=== PATIENT | male | born 1955 | race Caucasian/White ===

== ENCOUNTER 2021-01-28 12:34 | Inpatient (IN) | payer MEDICAID, OTHER ==
[~2021-01-28] VITALS: Ht 157.5 cm; Wt 70.3 kg
[2021-01-28 13:24] LABS: EOSINOPHILS % 0.8 % (0.0-5.0); HEMATOCRIT. 36.7 % (42.0-52.0); HEMOGLOBIN. 12.5 g/dL (14.0-18.0); LYMPHOCYTES % 19.3 % (20.0-50.0); MEAN CORPUSCULAR HEMOGLOBIN 37.2 pg (28.0-32.0); MEAN PLATELET VOLUME 9.8 fl (7.4-10.4); MONOCYTES % 9.4 % (2.0-8.0); NEUTROPHILS % 68.5 % (40.0-76.0); PLATELET 75 x1000/uL (130-400); RED BLOOD CELL COUNT 3.37 mill/uL (4.7-6.1); RED CELL DISTRIBUTION WIDTH 17.2 % (11.6-14.6)
[2021-01-28 13:27] LABS: CHLORIDE 99 mEq/L (98-107)
[2021-01-28] MEDS ORDERED: INSULIN REGULAR (HUMULIN R) 300UNITS/3ML VIAL IV ONE (13:45)
[2021-01-28] MEDS ORDERED: DILTIAZEM HCL 5MG/ML 5ML VIAL IV ONE (13:45)
[2021-01-28] MEDS ORDERED: DEXTROSE 50% WATER 50ML SYRINGE IV ONE (13:45)
[2021-01-28] MEDS ORDERED: ENOXAPARIN 80MG/0.8ML SYR SUBCUT ONE (16:15)
[2021-01-28] MEDS ORDERED: SODIUM POLYSTYRENE SULFONATE 15 G/60 ML BOT PO NR (19:45)
[2021-01-28] MEDS ORDERED: FUROSEMIDE 100MG/10ML VIAL IVP NR (19:45)
[2021-01-28] MEDS: METOPROLOL TARTRATE 50MG TABLET PO SCH (20:36)
[2021-01-28 20:46] LABS: HEPATITIS B SURFACE ANTIGEN NEGATIVE
[2021-01-28 21:47] VITALS: BP 111/75
[2021-01-28 22:00] VITALS: BP 111/75
[2021-01-28] MEDS ORDERED: PRO1 MT (22:39)
[2021-01-28] MEDS ORDERED: FERR325T6 MT (22:43)
[2021-01-28] MEDS ORDERED: FURO40TA5 MT (22:43)
[2021-01-28] MEDS ORDERED: PANT40TA51 MT (22:58)
[2021-01-28] MEDS ORDERED: LISI10TA26 MT (22:58)
[2021-01-28] MEDS ORDERED: CALC667C PO (22:58)
[2021-01-28] MEDS ORDERED: LEVO125T8 MT (22:58)
[2021-01-28] MEDS ORDERED: WARF6TAB48 PO (22:58)
[2021-01-28] MEDS ORDERED: CARV3.1242 MT (22:58)
[2021-01-28] MEDS ORDERED: METO-396 PO (22:58)
[2021-01-28] MEDS ORDERED: AMIO100T4 MT (22:58)
[2021-01-28] MEDS ORDERED: ATOR-2 MT (22:58)
[2021-01-28] MEDS ORDERED: ONDANSETRON HCL 4MG/2ML INJ IV PRN (23:30)
[2021-01-29] VITALS (12 sets, daily range): BP systolic 93–130; BP diastolic 43–86
[2021-01-29] MEDS ORDERED: INFLUENZA VACCINE 05/PF 0.5 ML SYRINGE IM ONE (03:00)
[2021-01-29 08:25] LABS: BASOPHILS % 1.2 % (0.0-2.0); EOSINOPHILS % 0.6 % (0.0-5.0); HEMATOCRIT. 41.2 % (42.0-52.0); HEMOGLOBIN. 13.3 g/dL (14.0-18.0); LYMPHOCYTES % 18.4 % (20.0-50.0); MEAN CORPUSCULAR VOLUME 111.3 fL (80.0-94.0); MEAN PLATELET VOLUME 10.2 fl (7.4-10.4); MONOCYTES % 12.2 % (2.0-8.0); NEUTROPHILS % 67.6 % (40.0-76.0); PLATELET 67 x1000/uL (130-400); RED CELL DISTRIBUTION WIDTH 17.5 % (11.6-14.6)
[2021-01-29 08:43] LABS: CHLORIDE 98 mEq/L (98-107)
[2021-01-29 08:53] LABS: PHOSPHORUS 5.4 mg/dL (2.5-4.9)
[2021-01-29] MEDS ORDERED: MEDICATION NOT ON FORMULARY EA (Atorvastatin Calcium 1 TAB) PO SCH (09:00)
[2021-01-29] MEDS: PANTOPRAZOLE 40MG DR TABLET PO SCH (09:05)
[2021-01-29] MEDS: METOPROLOL TARTRATE 50MG TABLET PO SCH ×2 (09:06→21:25)
[2021-01-29] MEDS: LEVOTHYROXINE SODIUM 125MCG TABLET PO SCH (09:06)
[2021-01-29] MEDS: FUROSEMIDE 40MG TABLET PO SCH (09:06)
[2021-01-29 17:50] LABS: PLATELET ESTIMATE DECREASED
[2021-01-29] MEDS ORDERED: ATORVASTATIN CALCIUM 40MG TABLET PO SCH (21:00)
[2021-01-30] VITALS (8 sets, daily range): BP systolic 103–119; BP diastolic 53–81
[2021-01-30] MEDS: FUROSEMIDE 40MG TABLET PO SCH (08:26)
[2021-01-30] MEDS: METOPROLOL TARTRATE 50MG TABLET PO SCH (08:26)
[2021-01-30] MEDS: PANTOPRAZOLE 40MG DR TABLET PO SCH (08:26)
[2021-01-30] MEDS: LEVOTHYROXINE SODIUM 125MCG TABLET PO SCH (08:26)
[2021-01-30 08:42] LABS: BASOPHILS % 1.9 % (0.0-2.0); EOSINOPHILS % 1.4 % (0.0-5.0); HEMATOCRIT. 42.5 % (42.0-52.0); LYMPHOCYTES % 22.3 % (20.0-50.0); MEAN CORPUSCULAR VOLUME 109.8 fL (80.0-94.0); MEAN PLATELET VOLUME 9.1 fl (7.4-10.4); MONOCYTES % 11.7 % (2.0-8.0); NEUTROPHILS % 62.7 % (40.0-76.0); PLATELET 85 x1000/uL (130-400); RED BLOOD CELL COUNT 3.87 mill/uL (4.7-6.1); RED CELL DISTRIBUTION WIDTH 17.7 % (11.6-14.6)
[2021-01-30 09:33] LABS: CHLORIDE 102 mEq/L (98-107)
[2021-01-30 09:43] LABS: PHOSPHORUS 5.2 mg/dL (2.5-4.9)
== END 2021-01-30 12:20 | disposition home or self-care (01) | DRG 425 ==
LOC: ER 12:34 → EDBD 12:34 → EDBEDREQ 13:09 → MICUSO 16:15 → EDBEDREQTM 16:23 → EDBEDREQ 16:23 → EDBEDREQSVC 16:23 → 5EST 20:41
PROVIDERS: ADMIT Internal Medicine; ATTEND Internal Medicine
PROC: 5A1D70Z Performance of Urinary Filtration, Intermittent, Less than 6 Hours Per Day (ICD-10-PCS; principal; 2021-01-29)
PROC: 5A1D70Z Performance of Urinary Filtration, Intermittent, Less than 6 Hours Per Day (ICD-10-PCS; 2021-01-30)
DX: E87.5 Hyperkalemia (principal); J96.90 Respiratory failure, unspecified, unspecified whether with hypoxia or hypercapnia; I13.2 Hypertensive heart and chronic kidney disease with heart failure and with stage 5 chronic kidney disease, or end stage renal disease; D61.818 Other pancytopenia; J91.8 Pleural effusion in other conditions classified elsewhere; N18.6 End stage renal disease; R18.8 Other ascites; N25.81 Secondary hyperparathyroidism of renal origin; E78.5 Hyperlipidemia, unspecified; I50.9 Heart failure, unspecified; K21.9 Gastro-esophageal reflux disease without esophagitis; K44.9 Diaphragmatic hernia without obstruction or gangrene; R74.01 Elevation of levels of liver transaminase levels; M62.08 Separation of muscle (nontraumatic), other site; E87.70 Fluid overload, unspecified; K86.9 Disease of pancreas, unspecified; Z82.49 Family history of ischemic heart disease and other diseases of the circulatory system; Z99.2 Dependence on renal dialysis; Z79.899 Other long term (current) drug therapy
CPT/HCPCS: 36415; 71045; 76700; 80053; 82962; 83735; 83880; 84100; 84484; 85025; 86705; 86709; 86803; 87340; 90686; 93005; 99285; J1650; J1815; J1940; J3490